=== PATIENT | female | born 1985 | race Caucasian/White ===

== ENCOUNTER → 2018-04-23 14:39 | Outpatient (CLI) | payer OTHER, MEDICAID, SELFPAY ==
[2018-04-23 16:00] LABS: Free T4, Direct Thyroxine 1.49 ng/dL (0.78-2.19)
[2018-04-23 16:14] LABS: Thyroid Stimulating Hormone 0.03 uIU/mL (0.47-4.68)
[2018-04-23 16:26] LABS: Vitamin D 25 Hydroxy (D3) 36.2 ng/mL (30.0-100.0)
[2018-04-23 16:43] LABS: Rubella Antibody IgG 8.1 IU/mL (>15)
[2018-04-25 13:57] LABS: Hepatitis B Surf Ab Qualitativ Reactive (Nonreactive)
[2018-04-25 14:41] LABS: Mumps Virus IgG Antibody < 9.00 AU/mL (< 9.00)
== END ==
PROVIDERS: PCP Family Medicine; Visit Provider Family Medicine
DX: E55.9 Vitamin D deficiency, unspecified (principal); E03.9 Hypothyroidism, unspecified; Z78.9 Other specified health status
CPT/HCPCS: 36415; 82306; 84439; 84443; 86706; 86735; 86762; 86765; 86787

== ENCOUNTER → 2018-09-15 16:16 | Outpatient (CLI) | payer OTHER, MEDICAID, SELFPAY ==
[2018-09-15 18:14] LABS: TSH w/ Reflex to FT4 0.26 uIU/mL (0.47-4.68)
[2018-09-15 18:59] LABS: HCG Quantitative /Beta subunit < 2.39 mIU/mL; Prolactin 11.8 ng/mL (3.0-18.6)
== END ==
PROVIDERS: Family Provider Family Medicine; PCP Family Medicine; Visit Provider Family Medicine
DX: E03.9 Hypothyroidism, unspecified (principal); N91.2 Amenorrhea, unspecified
CPT/HCPCS: 36415; 84146; 84439; 84443; 84702

== ENCOUNTER → 2018-11-07 14:10 | Outpatient (CLI) | payer OTHER, MEDICAID, SELFPAY ==
[2018-11-07 15:16] LABS: HCG Quantitative /Beta subunit < 2.39 mIU/mL
== END ==
PROVIDERS: Family Provider Family Medicine; PCP Family Medicine; Visit Provider Registered Nurse
DX: N93.9 Abnormal uterine and vaginal bleeding, unspecified (principal)
CPT/HCPCS: 36415; 84702

== ENCOUNTER → 2018-11-14 10:12 | Outpatient (CLI) | payer OTHER, MEDICAID, SELFPAY ==
--- NOTE | 2018-11-14 10:13 | DI.US.S_ITS ---
PROCEDURE: US PELVIC COMPLETE INDICATIONS: Heavy uterine bleeding TECHNIQUE: Real-time scanning was performed of the pelvic organs, with image documentation. Additional endovaginal scanning was necessary due to incomplete visualization of the adnexal and endometrial structures by transabdominal scanning. COMPARISON: [facility], , PELVIC COMPLETE, 01/01/2013, 10:17. FINDINGS: Transabdominal scanning: Limited scanning through the kidneys shows no hydronephrosis. No pathologic free abdominal or pelvic fluid. Endovaginal scanning: A mild amount of free pelvic fluid is seen, which is considered to be within physiologic limits. Limited scanning through the kidneys shows no hydronephrosis. Uterus: Uterus is normal in size at 6 x 2.9 x 4.1 cm. The endometrium measures 4 mm in combined thickness. Ovaries: The right ovary measures 1.7 x 1.4 x 2.8 cm. The left ovary measures 2 x 1.4 x 1.7 cm. The ovaries have a normal sonographic appearance with small follicles seen on both sides. No adnexal masses are seen. IMPRESSION: Pelvic ultrasound within normal limits. Dictated by: Noah Martinez M.D. on 11/14/2018 at 10:19 Approved by: Noah Martinez M.D. on 11/14/2018 at 10:21
== END ==
PROVIDERS: Family Provider Family Medicine; PCP Family Medicine; Visit Provider Registered Nurse
DX: N93.9 Abnormal uterine and vaginal bleeding, unspecified (principal)
CPT/HCPCS: 76830; 76856

== ENCOUNTER → 2019-01-23 16:38 | Outpatient (CLI) | payer OTHER, MEDICAID, SELFPAY ==
[2019-01-23 17:57] LABS: Free T3, Triiodothyronine Free 2.76 pg/mL (2.77-5.27); Free T4, Direct Thyroxine 1.25 ng/dL (0.78-2.19)
== END ==
PROVIDERS: PCP Family Medicine; Visit Provider Family Medicine
DX: E03.9 Hypothyroidism, unspecified (principal)
CPT/HCPCS: 36415; 84439; 84443; 84481

== ENCOUNTER → 2019-03-04 16:03 | Outpatient (CLI) | payer OTHER, MEDICAID, SELFPAY | PROVIDERS: PCP Family Medicine; Visit Provider Physician Assistant | DX: R30.0 Dysuria (principal) | CPT/HCPCS: 87077; 87086; 87186 ==

== ENCOUNTER → 2020-01-06 17:28 | Outpatient (CLI) | payer OTHER, MEDICAID, SELFPAY ==
[2020-01-06 19:09] LABS: Hemoglobin A1C% w Est Avg Glu 5.3 % (4.0-6.0)
[2020-01-06 19:32] LABS: Alanine Aminotransferase 49 IU/L (<35); Albumin 4.1 g/dL (3.5-5.0); Albumin Globulin Ratio 1.1 (1.0-2.8); Alkaline Phosphatase 116 U/L (38-126); Aspartate Aminotransferase 35 IU/L (14-36); BUN Creatinine Ratio 13.3 (6-22); Bilirubin Total 0.3 mg/dL (0.2-1.3); Blood Urea Nitrogen 11 mg/dL (7-17); Calcium 9.5 mg/dL (8.4-10.2); Carbon Dioxide 21 mmol/L (22-32); Chloride 109 mmol/L (98-107); Estimated Glomerular Filt Rate > 60.0 mL/min (>60); Globulin 3.7 g/dL (1.7-4.1); Glucose 101 mg/dL (70-100); HEMOLYSIS < 15 (0-50); Potassium 4.2 mmol/L (3.4-5.1); Sodium 140 mmol/L (137-145); Total Protein 7.8 g/dL (6.3-8.2)
[2020-01-06 19:46] LABS: Free T3, Triiodothyronine Free 1.92 pg/mL (2.77-5.27); Free T4, Direct Thyroxine 0.82 ng/dL (0.78-2.19)
[2020-01-06 19:47] LABS: Vitamin D 25 Hydroxy (D3) 21.6 ng/mL (30.0-100.0)
[2020-01-06 20:00] LABS: Thyroid Stimulating Hormone 3.65 uIU/mL (0.47-4.68)
[2020-01-12 04:36] LABS: Triiodothyronine T3 Reverse 21.4 ng/dL (9.2-24.1)
== END ==
PROVIDERS: PCP Family Medicine; Referring Provider Family Medicine; Visit Provider Family Medicine
DX: E03.9 Hypothyroidism, unspecified (principal); E55.9 Vitamin D deficiency, unspecified; E66.9 Obesity, unspecified; F32.9 Major depressive disorder, single episode, unspecified; M85.80 Other specified disorders of bone density and structure, unspecified site
CPT/HCPCS: 36415; 80053; 82306; 83036; 84439; 84443; 84481; 84482

== ENCOUNTER → 2020-04-01 11:29 | Outpatient (CLI) | payer OTHER, SELFPAY | PROVIDERS: PCP Family Medicine; Visit Provider Family Medicine | DX: N39.0 Urinary tract infection, site not specified (principal) | CPT/HCPCS: 87077; 87086; 87186 ==

== ENCOUNTER → 2020-09-21 16:30 | Outpatient (CLI) | payer OTHER, MEDICAID, SELFPAY ==
[2020-09-21 17:45] LABS: Progesterone, Total 0.44 ng/mL
== END ==
PROVIDERS: PCP Family Medicine; Referring Provider Family Medicine; Visit Provider Family Medicine
DX: E28.2 Polycystic ovarian syndrome (principal)
CPT/HCPCS: 36415; 84144

== ENCOUNTER → 2020-10-03 15:16 | Outpatient (CLI) | payer OTHER, MEDICAID, SELFPAY ==
[2020-10-03 16:17] LABS: Free T4, Direct Thyroxine 1.47 ng/dL (0.78-2.19)
[2020-10-03 16:20] LABS: Follicle Stimulating Hormone 3.61 mIU/mL
[2020-10-03 16:31] LABS: Thyroid Stimulating Hormone 0.086 uIU/mL (0.47-4.68)
== END ==
PROVIDERS: PCP Family Medicine; Referring Provider Obstetrics & Gynecology; Visit Provider Obstetrics & Gynecology
DX: E03.9 Hypothyroidism, unspecified (principal); E28.2 Polycystic ovarian syndrome
CPT/HCPCS: 36415; 83001; 83002; 84439; 84443; 84481

== ENCOUNTER → 2021-01-28 11:20 | Outpatient (CLI) | payer OTHER, SELFPAY ==
[2021-01-28 11:44] LABS: Initial Volume 4 mL; Semen 30 min. Liquification? Yes
== END ==
PROVIDERS: PCP Family Medicine; Referring Provider Obstetrics & Gynecology; Visit Provider Obstetrics & Gynecology
DX: N97.0 Female infertility associated with anovulation (principal)
CPT/HCPCS: 58323

== ENCOUNTER → 2021-02-25 07:10 | Outpatient (CLI) | payer OTHER, SELFPAY ==
[2021-02-25 08:10] LABS: Final Volume 0.5 mL; Semen 30 min. Liquification? Yes
== END ==
PROVIDERS: PCP Family Medicine; Referring Provider Obstetrics & Gynecology; Visit Provider Obstetrics & Gynecology
DX: E28.2 Polycystic ovarian syndrome (principal); N97.0 Female infertility associated with anovulation
CPT/HCPCS: 58323

== ENCOUNTER → 2021-03-25 10:40 | Outpatient (CLI) | payer OTHER, SELFPAY ==
[2021-03-25 11:05] LABS: Final Volume 1 mL; Initial Volume 4 mL; Semen 30 min. Liquification? Yes
== END ==
PROVIDERS: PCP Family Medicine; Referring Provider Specialist; Visit Provider Specialist
DX: N97.0 Female infertility associated with anovulation (principal)
CPT/HCPCS: 58323

== ENCOUNTER → 2021-04-25 12:15 | Outpatient (CLI) | payer OTHER, SELFPAY ==
[2021-04-25 14:00] LABS: Initial Volume 3.5 mL; Semen 30 min. Liquification? Yes
== END ==
PROVIDERS: PCP Family Medicine; Referring Provider Obstetrics & Gynecology; Visit Provider Obstetrics & Gynecology
DX: N97.0 Female infertility associated with anovulation (principal)
CPT/HCPCS: 58323

== ENCOUNTER → 2021-05-04 10:21 | Outpatient (CLI) | payer OTHER, SELFPAY ==
[2021-05-04 11:12] LABS: Hemoglobin A1C% w Est Avg Glu 5.4 % (4.0-6.0)
[2021-05-04 11:25] LABS: Alanine Aminotransferase 32 IU/L (<35); Albumin 4.3 g/dL (3.5-5.0); Albumin Globulin Ratio 1.1 (1.0-2.8); Alkaline Phosphatase 105 U/L (38-126); Aspartate Aminotransferase 32 IU/L (14-36); BUN Creatinine Ratio 13.2 (6-22); Bilirubin Total 0.5 mg/dL (0.2-1.3); Blood Urea Nitrogen 9 mg/dL (7-17); Calcium 9.4 mg/dL (8.4-10.2); Carbon Dioxide 22 mmol/L (22-32); Chloride 106 mmol/L (98-107); Cholesterol 203 mg/dL (140-199); Estimated Glomerular Filt Rate > 60.0 mL/min (>60); Globulin 3.8 g/dL (1.7-4.1); Glucose 96 mg/dL (70-100); HDL Cholesterol 51 mg/dL (40-60); HEMOLYSIS < 15 (0-50); LDL Cholesterol Calculated 135 mg/dL (<100); Potassium 4.1 mmol/L (3.4-5.1); Sodium 137 mmol/L (137-145); Total Protein 8.1 g/dL (6.3-8.2); Triglycerides 84 mg/dL (35-150)
[2021-05-04 12:03] LABS: Free T3, Triiodothyronine Free 2.88 pg/mL (2.77-5.27); Free T4, Direct Thyroxine 1.36 ng/dL (0.78-2.19)
== END ==
PROVIDERS: PCP Family Medicine; Referring Provider Family Medicine; Visit Provider Family Medicine
DX: E03.9 Hypothyroidism, unspecified (principal); E28.2 Polycystic ovarian syndrome; E66.9 Obesity, unspecified; R79.89 Other specified abnormal findings of blood chemistry
CPT/HCPCS: 36415; 80053; 80061; 83036; 84439; 84443; 84481

== ENCOUNTER → 2021-07-04 18:06 | Outpatient (CLI) | payer OTHER, MEDICAID, SELFPAY ==
--- NOTE | 2021-07-04 18:08 | DI.RAD.S_ITS ---
PROCEDURE: XR KNEE LT 3V INDICATIONS: fall TECHNIQUE: 3 views of the knee were acquired. COMPARISON: None. FINDINGS: Bones: No fractures or dislocations. No suspicious bony lesions. Soft tissues: Small joint effusion. No suspicious soft tissue calcifications. IMPRESSION: No acute osseous abnormality. Small joint effusion suspected. Dictated by: Kun Candelario M.D. on 07/04/2021 at 18:26 Approved by: Kun Candelario M.D. on 07/04/2021 at 18:31
== END ==
PROVIDERS: PCP Family Medicine; Referring Provider Physician Assistant; Visit Provider Physician Assistant
DX: M25.562 Pain in left knee (principal); M25.462 Effusion, left knee
CPT/HCPCS: 73562

== ENCOUNTER → 2023-04-22 16:12 | Outpatient (CLI) | payer OTHER, SELFPAY ==
[2023-04-22 17:58] LABS: HCG Quantitative /Beta subunit < 2.4 mIU/mL
== END ==
PROVIDERS: PCP Family Medicine; Referring Provider Obstetrics & Gynecology; Visit Provider Obstetrics & Gynecology
DX: N91.2 Amenorrhea, unspecified (principal)
CPT/HCPCS: 36415; 84702

== ENCOUNTER → 2023-06-06 | Outpatient (CLI) | payer OTHER, SELFPAY ==
--- NOTE | 2023-06-06 08:16 | DI.RAD.S_ITS ---
PROCEDURE: HL HYSTEROSAPINGOGRAPHY INDICATIONS: Check tubes COMPARISON: None. FINDINGS: Patient had a documented negative test prior to the study. Following speculum insertion, a balloon-tip catheter was inserted into the cervical canal, and secured by inflating the balloon. Contrast was then injected into the endometrial canal. Uterus: The uterine cavity appears normal in size and morphology, without synechiae or masses. Fallopian tubes: Both fallopian tubes fill with contrast, and appear normal in caliber and morphology. There is ready dispersion of contrast into the peritoneal cavity. IMPRESSION: Patent bilateral fallopian tubes. Dictated by: Veornica Chan M.D. on 06/12/2023 at 13:00 Approved by: Veronica Chan M.D. on 06/12/2023 at 13:01
--- NOTE | 2023-06-06 17:03 | P.PCN_ITS ---
Procedures Date/Time Date of procedure: 06/06/23 Time of procedure: 09:05 General Procedure description: Hysterosalpingogram After informed consent was obtained, the patient was placed on the fluoroscopy table on an overturned bedpan. A bivalve speculum was placed into the vagina. The cervix was cleaned x3 with Betadine. The anterior lip of the cervix was grasped with a single-tooth tenaculum. The dilator was used to dilate the cer vix to 5 mm. The hysterosalpingogram catheter passed easily into the endometrial cavity and the balloon was inflated with 3 cc of air. The bivalve speculum was removed from the vagina. 12 cc of Isovue-300 were injected into the uterus under direct fluoroscopic examination. The contours of the uterus were normal. There was bilateral spill from the tubes. The Isovue-300 was aspirated from the uterus. The single-tooth tenaculum was removed from the anterior lip of the cervix. Sponge, and instrument counts were correct x2. The patient tolerated the procedure well. Complications: none
== END ==
LOC: RAD 08:15
PROVIDERS: PCP Family Medicine; Referring Provider Obstetrics & Gynecology; Visit Provider Obstetrics & Gynecology
DX: Z31.69 Encounter for other general counseling and advice on procreation (principal)
CPT/HCPCS: 58340; 74740

== ENCOUNTER 2025-09-03 17:31 | Emergency (ER) | payer BC, SELFPAY ==
[2025-09-03] VITALS (12 sets, daily range): BP systolic 133–150; BP diastolic 79–95; PULSE 75–102; RESP 18; TEMP 36.8; O2SAT 97–100; BMI 32.3
--- NOTE | 2025-09-03 17:42 | DI.CT.S_ITS ---
PROCEDURE: CT ABDOMEN PELVIS W CON
--- NOTE | 2025-09-03 17:45 | ED_ITS ---
HPI - Abdominal Pain
--- NOTE | 2025-09-03 17:45 | ED.ABDPAIN ---
HPI - Abdominal Pain General Chief Complaint: Abdominal Pain Stated Complaint: severe abd pn, vomiting since last night, Time Seen by Provider: 09/03/25 17:41 Source: patient Mode of arrival: Wheelchair History of Present Illness HPI narrative: Patient is a 40-year-old female presenting today with 24 hours of abdominal pain. She has been unable to keep anything and she is having some nausea vomiting. No change in bowel habits. She does have a history of migraines she can not take opiates they cause severe vomiting despite anti nausea medication. She denies any chest pain or shortness breath. She reports that even putting on a seatbelt hurts her. Related Data Previous Rx's ?Medication ?Instructions ?Recorded Cane: Single Point u ##1 08/05/17 VITAMIN D (Vitamin D2) 50,000 units PO QWEEK #4 caps 03/05/18 inhalational spacing device (Augusto #1 ea 06/20/18 Aerosol [place] Enhancer spacer) albuterol sulfate 90 mcg/actuation 2 puff inhalation Q4HP PRN 01/06/20 aerosol inhaler (Ventolin HFA) shortness of breath or wheezing #1 ea lorazepam 1 mg tablet 1 mg PO Q6HP PRN anxiety #15 tabs 01/06/20 metformin 500 mg tablet See Rx Instructions .Route 04/10/21 .COMPLEX #180 tabs levothyroxine 137 mcg tablet 137 mcg PO DAILY #90 tabs 10/16/21 sertraline 100 mg tablet 200 mg (2 x 100 mg) PO DAILY #180 10/16/21 tabs letrozole 2.5 mg tablet See Rx Instructions .Route 11/27/21 .COMPLEX #5 tabs Allergies Allergy/AdvReac Type Severity Reaction Status Date / Time venom-honey bee (bee venom Allergy Intermediate SWELLING Verified 09/03/25 17:36 (honey bee)) zolpidem (From AMBIEN) AdvReac Severe sleep Verified 09/03/25 17:36 behaviors-tried to jump from 2nd story window Opioids - Morphine Analogues AdvReac Intermediate All Verified 09/03/25 17:36 opioids - Nausea/Vomiting hydrocodone AdvReac Mild VOMITING Verified 09/03/25 17:36 Patient History Medical History Otitis media Impacted cerumen of right ear 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) Left hip pain Kidney stones Hypothyroidism (2012) Chicken pox Chronic back pain (2011) Depression (1993) Asthma (1999) Normal Papanicolaou smear DUB (dysfunctional uterine bleeding) Surgical History Anesthesia Status post arthroscopy (2002) Family History Father Age: 68 Hypertension High cholesterol Mother Age: 64 History of recurrent miscarriages, not currently H/O bicuspid aortic valve History of aortic valve replacement Obesity Heart disease Hypertension High cholesterol Grandmother Diabetes mellitus Sister Age: 40 PCOS (polycystic ovarian syndrome) Morbid obesity, unspecified obesity type Sister Age: 45 Cervical cancer Brother No problems noted. Brother No problems noted. Grandfather No problems noted. Grandmother Ovarian cancer Social History Smoking Status: Never smoker alcohol intake: never substance use type: does not use Smoking Status: Never smoker Exam Initial Vital Signs Initial Vital Signs: Vital Signs Temperature 98.2 F 09/03/25 17:36 Pulse Rate 86 09/03/25 17:36 Respiratory Rate 18 09/03/25 17:36 Blood Pressure 133/88 09/03/25 17:36 Pulse Oximetry 99 09/03/25 17:36 Oxygen Delivery Method Room Air 09/03/25 17:36 GENERAL: Alert 40-year-old female appears uncomfortable HEENT: Head atraumatic,EOMI, pupils reactive, face symmetric, moist mucous membranes CARDIOVASCULAR: Regular rate and rhythm without murmurs, rubs or gallops. RESPIRATORY: Breath sounds equal bilaterally, no wheezes rales or rhonchi. ABDOMEN: Diffusely tender all throughout more on lower abdomen rather than upper EXTREMITIES: Normal range of motion, no clubbing or edema. Neurovascularly intact NEUROLOGICAL: Alert and oriented x4.Normal gait and speech. Cranial nerves II through XII grossly intact. SKIN: Warm, dry, no laceration, no petechiae, no rashes or lesions. Course Orders Ordered: ED Orders 09/03/25 17:42 CT abdomen pelvis w con Stat EKG-12 Lead Stat 09/03/25 18:02 Complete Blood Count AUTO DIFF Stat Comprehensive Metabolic Panel Stat Lactate (Lactic Acid) Stat Lipase Stat Test Serum,Qual Stat 09/03/25 19:25 Blood Culture Stat Sodium Chloride (Normal Saline 0.9%) 1,000 mls @ 100 mls/hr IV CONT MIAH Last Admin: 09/03/25 22:39 Dose: 100 mls/hr Documented By: RAMIREZ Discontinued Medications Sodium Chloride (Normal Saline 0.9%) 1,000 mls @ 1,000 mls/hr IV BOLUS ONE Stop: 09/03/25 18:41 Last Infusion: 09/03/25 19:33 Dose: Infused Documented By: Admin: 09/03/25 18:28 Dose: 1,000 mls/hr Documented By: RAMIREZ Ceftriaxone Sodium 1,000 mg/ (Sodium Chloride) 100 mls @ 200 mls/hr IV NOW ONE Stop: 09/03/25 18:47 Last Infusion: 09/03/25 20:11 Dose: Infused Documented By: Admin: 09/03/25 19:28 Dose: 200 mls/hr Documented By: BK Sodium Chloride (Normal Saline 0.9%) 1,000 mls @ 1,000 mls/hr IV BOLUS ONE Stop: 09/03/25 19:45 Last Infusion: 09/03/25 20:57 Dose: Infused Documented By: Admin: 09/03/25 19:32 Dose: 1,000 mls/hr Documented By: BK Metronidazole (Flagyl) 500 mg in 100 mls @ 100 mls/hr IV NOW ONE Stop: 09/03/25 20:47 Last Infusion: 09/03/25 21:06 Dose: Infused Documented By: Admin: 09/03/25 20:00 Dose: 100 mls/hr Documented By: BK Sodium Chloride (Normal Saline 0.9%) 2,408.58 mls @ 802.86 mls/hr 30 ml/kg infuse over 3 hr (2408.58 ml) IV NOW ONE Stop: 09/03/25 22:59 Last Infusion: 09/03/25 22:38 Dose: Infused Documented By: Admin: 09/03/25 20:59 Dose: 802.86 mls/hr Documented By: BK Piperacillin Sod/Tazobactam (Sod 4.5 gm/ Sodium Chloride) 100 mls @ 200 mls/hr IV NOW ONE Stop: 09/03/25 22:06 Last Admin: 09/03/25 22:26 Dose: 200 mls/hr Documented By: RAMIREZ Ketorolac Tromethamine (Ketorolac 30 Mg/Ml Vial) 15 mg IV NOW ONE Stop: 09/03/25 17:44 Last Admin: 09/03/25 18:28 Dose: 15 mg Documented By: RAMIREZ Ondansetron HCl (Ondansetron 4 Mg/2 Ml Inj) 4 mg IV NOW ONE Stop: 09/03/25 17:43 Last Admin: 09/03/25 18:28 Dose: 4 mg Documented By: RAMIREZ Vital Signs Vital signs: Vital Signs - 8 hr 09/03/25 17:36 09/03/25 19:37 09/03/25 20:00 Temperature 98.2 F Pulse Rate 86 82 88 Respiratory Rate 18 Blood Pressure 133/88 Pulse Oximetry 99 99 100 Oxygen Delivery Method Room Air 09/03/25 20:30 09/03/25 21:51 Temperature Pulse Rate 97 H 75 Respiratory Rate 18 Blood Pressure Pulse Oximetry 98 100 Oxygen Delivery Method MDM - Abdominal Pain Lab Data 09/03/25 18:02 09/03/25 18:02 Labs: Lab Results 09/03/25 09/03/25 Range/Units 18:02 20:16 WBC 17.6 H (4.5-11.0) X10^3/uL RBC 5.78 H (4.0-5.2) X10^6/uL Hgb 14.4 (12.0-16.0) g/dL Hct 43.6 (36-46) % MCV 75.4 L (80-100) fL MCH 24.9 L (26-34) PG MCHC 33.0 (30-36) % RDW 14.9 H (11.6-14.8) % Plt Count 400 (150-400) X10^3/uL Neut % (Auto) 86.1 H (50-75) % Lymph % (Auto) 7.9 L (25-40) % [place] % (Auto) 5.7 (3-14) % Eos % (Auto) 0.0 L (2-4) % Baso % (Auto) 0.3 (0-2) % Neut # (Auto) 27753 H (7476-5855) /uL Lymph # (Auto) 1400 (9637-8405) /uL [place] # (Auto) 1000 H (0-900) /uL Eos # (Auto) 0 (0-450) /uL Baso # (Auto) 100 (0-100) /uL Sodium 138 (137-145) mmol/L Potassium 4.1 (3.4-5.1) mmol/L Chloride 101 (98-107) mmol/L Carbon Dioxide 20 L (22-32) mmol/L BUN 10 (7-17) mg/dL Creatinine 0.76 (0.52-1.04) mg/dL Estimated GFR > 60 (>60) mL/min BUN/Creatinine Ratio 13.2 (6-22) Glucose 109 H (70-99) mg/dL Lactate 3.0 H 1.2 (0.7-2.1) mmol/L Calcium 9.9 (8.4-10.2) mg/dL Total Bilirubin 0.9 (0.2-1.3) mg/dL AST 79 H (14-36) IU/L ALT 142 H (<35) IU/L Alkaline Phosphatase 129 H (38-126) U/L Total Protein 10.1 H (6.3-8.2) g/dL Albumin 5.3 H (3.5-5.0) g/dL Globulin 4.8 H (1.7-4.1) g/dL Albumin/Globulin Ratio 1.1 (1.0-2.8) Lipase 46 (23-300) U/L Serum , Qual Negative (Negative) Point of care testing: Urine Dip Bedside Urine Glucose Negative Bedside Urine Bilirubin - Negative Bedside Urine Ketone + 15 Urine Specific [place] 1.010 Bedside Urine Occult Blood - Negative Bedside Urine pH 7.0 Bedside Urine Protein - Negative Bedside Urine Urobilinogen - Negative Bedside Urine Nitrite - Negative Bedside Urine Leukocytes - Negative Esterase Imaging Data CT scan - abdomen/pelvis: Radiologist's Impression: PROCEDURE: CT ABDOMEN PELVIS W CON INDICATIONS: sever upper ab pain TECHNIQUE: After the administration of intravenous contrast, axial sections acquired from the lung bases to the pubic symphysis. Coronal and sagittal reformats were performed. For radiation dose reduction, the following was used: automated exposure control, adjustment of mA and/or kV according to patient size. COMPARISON: None. FINDINGS: Image quality: Diagnostic. Lower Chest: No significant findings. ABDOMEN: Liver: No solid mass. Gallbladder: Markedly distended and markedly inflamed gallbladder with marked wall edema. Large gallstones. There is fluid subjacent to the gallbladder. Consider possible gallbladder perforation. Biliary ducts: There are numerous small calcifications present in the distal duodenum and proximal jejunum, potentially biliary stones that have passed into the proximal small bowel, not definite. Pancreas: No ductal dilation. Spleen: Size is within normal limits. Adrenal Glands: No adrenal nodules. Kidneys and Ureters: No hydronephrosis. No solid mass. No complex renal cystic lesion which requires follow up. Stomach and Bowel: Normal colonic caliber, without significant wall thickening. Peritoneum: No abnormal intraperitoneal fluid. No free air. Ventral Wall: No significant ventral hernia. Abdominal Nodes: No retroperitoneal or mesenteric adenopathy by size criteria. Vessels: Aorta and inferior vena cava are normal in size. PELVIS: Pelvic Organs: Unremarkable. Bladder: No bladder wall thickening, accounting for underdistention. Pelvic Nodes: No enlarged lymph nodes. Miscellaneous: No inguinal hernias are seen. Bones: No aggressive osseous abnormality. Bilateral L4 pars defects, mild anterolisthesis of L4 on L5. There is mild posterior disc protrusion at this level. There is no canal stenosis or significant foraminal stenosis. IMPRESSION: Remarkably severe acute cholecystitis. Question perforation. Question passage of multiple stones into the bowel. Comment: Findings were discussed with Dr. Ragsdale on 09/03/2025 at 1918 hours Incidental findings include bilateral L4 pars defects with mild anterolisthesis. Dictated by: Rafy Fung M.D. on 09/03/2025 at 19:16 MDM Narrative Medical decision making narrative: MDM CC: Abdominal pain Complicating co-morbidities: Asthma hypothyroid Data collected from: Patient Medical records reviewed: Minimal records, patient reports that she is not on metformin she does have PCOS she was taking it but not taking it anymore Differential considered: Perforation, ischemia, cholecystitis cholelithiasis Exam documented above, pertinent findings include: Patient has pretty tender abdomen all over, peritoneal signs, tender in lower abdomen as well as upper abdomen appears quite uncomfortable breath sounds are clear Lab Test results independently reviewed as above. Pertinent findings: CBC shows leukocytosis of 17 left shift noted no anemia Electrolytes do not show any significant abnormality creatinine 0.7 Lactate 3.0-->1.2 Bilirubin 0.9 AST 79 ALT 42 alk-phos 129 Imaging studies independently reviewed: CT concerning for acute cholecystitis possible perforation possible passage of multiple stones into the bowel. I did discuss findings with radiologist Consultations: 1944 Dr. 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 2038 Dr. Porter, surgery at [facility] updated on patient's symptoms test results concern for acute abdomen 2199 Dr. Henning in ED to see and evaluate patient agrees that patient is stable for transfer and needs to be transferred for higher level of care. Surgeons spoke to each other and agree on transfer Treatments: Sepsis fluids, Rocephin, Flagyl, Zosyn, Toradol Re-evaluations: Patient's abdomen is reexamined much softer able to touch and pain she overall appears better vitals remain stable she has never hypotensive or tachycardic in the emergency department Discussion: Patient 40-year-old female presenting today with sudden onset of abdominal pain nausea and vomiting. Abdomen is very tender concern for peritoneal signs initially upon arrival. However after Toradol and fluids she is feeling better. She initially had an elevated lactate of 3.0 which improved to 1.2. Vitals are stable. Surgery concern for perforated gallbladder and possible gallbladder fistula. Surgeon spoke to each other and patient is accepted in being transferred to [facility] Critical Care Time Critical Care Time Critical Care Time: Yes Total Critical Care Time: 32 Attestation: The high probability of a clinically significant, sudden or life threatening deterioration of the abdominal system(s) required my full and direct attention, intervention and personal management. The aggregate critical care time was 32 minutes. This time is in addition to time spent performing reported procedures but includes the following: [x] Data Review and interpretation [x] Patient assessment and monitoring of vital signs [x] Documentation [x] Medication orders and management Discharge Plan Departure Patient Disposition: [facility] Clinical Impression: Perforated gallbladder Prescriptions: No Action Cane: Single Point Qty: 1 0RF VITAMIN D (Vitamin D2) 50,000 units PO QWEEK Qty: 4 1RF Rx Instructions: Please have your vitamin D level checked in 8 weeks metformin 500 mg tablet See Rx Instructions .ROUTE .COMPLEX Qty: 180 1RF Dose Instruction: TAKE 1 TABLET BY MOUTH TWICE DAILY Rx Instructions: TAKE 1 TABLET BY MOUTH TWICE DAILY levothyroxine 137 mcg tablet 137 mcg PO DAILY Qty: 90 0RF sertraline 100 mg tablet 200 mg PO DAILY Qty: 180 3RF letrozole 2.5 mg tablet See Rx Instructions .ROUTE .COMPLEX Qty: 5 1RF Dose Instruction: TAKE 1 TABLET BY MOUTH DAILY ON DAY 3-7 OF CYCLE Rx Instructions: TAKE 1 TABLET BY MOUTH DAILY ON DAY 3-7 OF CYCLE albuterol sulfate [Ventolin HFA] 90 mcg/actuation HFA aerosol inhaler 2 puff INHALATION Q4HP PRN (Reason: shortness of breath or wheezing) Qty: 1 5RF lorazepam 1 mg tablet 1 mg PO Q6HP PRN (Reason: anxiety) Qty: 15 0RF (DME) inhalational spacing device [Augusto Aerosol [place] Enhancer] spacer See Dose Instructions .ROUTE .MEDSUPPLY Qty: 1 0RF Dose Instruction: As directed Rx Instructions: As directed
--- NOTE | 2025-09-03 18:12 | EKG_ITS ---
[facility]
[2025-09-03 18:16] LABS: Add Manual Diff / Slide Review NO; Hematocrit 43.6 % (36-46); Hemoglobin 14.4 g/dL (12.0-16.0); Lymphocytes Absolute Auto 1400 /uL (1100-4500); Mean Corpuscular HGB Conc 33.0 % (30-36); Mean Corpuscular Hemoglobin 24.9 PG (26-34); Mean Corpuscular Volume 75.4 fL (80-100); Platelet Count 400 X10^3/uL (150-400)
[2025-09-03] MEDS: KETOROLAC 30 MG/ML VIAL 15 MG IV (18:28)
[2025-09-03] MEDS: ONDANSETRON 4 MG/2 ML INJ IV (18:28)
[2025-09-03] MEDS: SODIUM CHLORIDE 0.9% 1,000 ML 1000 ML IV ×2 (18:28→19:32)
[2025-09-03 18:36] LABS: Alanine Aminotransferase 142 IU/L (<35); Albumin 5.3 g/dL (3.5-5.0); Albumin Globulin Ratio 1.1 (1.0-2.8); Alkaline Phosphatase 129 U/L (38-126); Blood Urea Nitrogen 10 mg/dL (7-17); Calcium 9.9 mg/dL (8.4-10.2); Carbon Dioxide 20 mmol/L (22-32); Chloride 101 mmol/L (98-107); Estimated Glomerular Filt Rate > 60 mL/min (>60); Globulin 4.8 g/dL (1.7-4.1); Glucose 109 mg/dL (70-99); HEMOLYSIS < 15 (0-50); Lipase 46 U/L (23-300); Potassium 4.1 mmol/L (3.4-5.1); Sodium 138 mmol/L (137-145); Total Protein 10.1 g/dL (6.3-8.2)
[2025-09-03 18:38] LABS: Lactate (Lactic Acid) 3.0 mmol/L (0.7-2.1)
[2025-09-03 18:41] LABS: Pregnancy Test Serum,Qual Negative (Negative)
[2025-09-03] MEDS: metroNIDAZOLE 500 MG/100 ML PIGGYBACK 100 MG IV (20:00)
[2025-09-03 20:07] LABS: Reflexed Lactate in 2 Hours Y
[2025-09-03 20:39] LABS: Lactate 2HR (Lactic Acid Rflx) 1.2 mmol/L (0.7-2.1)
[2025-09-03] MEDS: SODIUM CHLORIDE 0.9% 802.86 ML IV (20:59)
--- NOTE | 2025-09-03 22:11 | P.CONS_ITS ---
History of Present Illness
--- NOTE | 2025-09-03 22:11 | PM.CN.IH.1 ---
History of Present Illness Consult details Date Patient Seen: 09/03/25 Time Patient Seen: 22:11 Chief complaint: severe abd pn, vomiting since last night, Reason for consult: same Requesting provider: Myranda Ragsdale Narrative: Called to evaluate this 40-year-old female who presented to the emergency room this p.m. following a sudden onset of severe abdominal pain. The patient reports that up until this afternoon, she had no discomfort and was feeling normal. She reports that the pain came on suddenly and was very intense. She reports no nausea or vomiting. She states she has never had heartburn. She has remained afebrile at home. The patient is otherwise very healthy. She has had no prior surgery and reports no heart disease or diabetes. She has mild hypothyroidism and utilizes inhalers for seasonal asthma. She does not smoke nor does she consume ethanol. CT of the abdomen and pelvis reveals an very thick walled, distended gallbladder with fluid dependently collected beneath the gallbladder. It is immediately adjacent to the duodenum with evidence of fistulization. There are numerous gallstones within the proximal small bowel. On presentation to the emergency room she was noted to have severe leukocytosis [place] [address] and a lactate of 3. She has responded well to IV fluids with diminution of a lactate to 1.2. Meds Home Medications and Allergies Home Medications ?Medication ?Instructions ?Recorded ?Confirmed ?Type Cane: Single Point u ##1 08/05/17 07/15/23 Rx VITAMIN D (Vitamin D2) 50,000 units PO QWEEK #4 caps 03/05/18 07/15/23 Rx inhalational spacing device (Augusto #1 ea 06/20/18 07/15/23 Rx Aerosol Burke Enhancer spacer) albuterol sulfate 90 mcg/actuation 2 puff inhalation Q4HP PRN 01/06/20 07/15/23 Rx aerosol inhaler (Ventolin HFA) shortness of breath or wheezing #1 ea lorazepam 1 mg tablet 1 mg PO Q6HP PRN anxiety #15 tabs 01/06/20 07/15/23 Rx metformin 500 mg tablet See Rx Instructions .Route 04/10/21 07/15/23 Rx .COMPLEX #180 tabs levothyroxine 137 mcg tablet 137 mcg PO DAILY #90 tabs 10/16/21 07/15/23 Rx sertraline 100 mg tablet 200 mg (2 x 100 mg) PO DAILY #180 10/16/21 07/15/23 Rx tabs letrozole 2.5 mg tablet See Rx Instructions .Route 11/27/21 07/15/23 Rx .COMPLEX #5 tabs Allergies Allergy/AdvReac Type Severity Reaction Status Date / Time venom-honey bee (bee venom Allergy Intermediate SWELLING Verified 09/03/25 17:36 (honey bee)) zolpidem (From AMBIEN) AdvReac Severe sleep Verified 09/03/25 17:36 behaviors-tried to jump from 2nd story window Opioids - Morphine Analogues AdvReac Intermediate All Verified 09/03/25 17:36 opioids - Nausea/Vomiting hydrocodone AdvReac Mild VOMITING Verified 09/03/25 17:36 Review of Systems Review of Systems ROS: Yes All systems reviewed with the patient and are negative except as otherwise documented Exam Vital Signs (past 8 hours): - 09/03/25 17:36 09/03/25 19:37 09/03/25 20:00 Temperature 98.2 F Pulse Rate 86 82 88 Respiratory Rate 18 Blood Pressure 133/88 Pulse Oximetry 99 99 100 Oxygen Delivery Method Room Air 09/03/25 20:30 09/03/25 21:51 Temperature Pulse Rate 97 H 75 Respiratory Rate 18 Blood Pressure Pulse Oximetry 98 100 Oxygen Delivery Method Oxygen Delivery Method Room Air Narrative Exam Narrative: Atraumatic, normocephalic Alert and oriented x4 Afebrile Vital signs stable Pupils equal, round, reactive to light and accommodation; no scleral icterus Trachea midline Regular rate and rhythm without murmur Respirations clear to auscultation bilaterally; no wheezes rales or rhonchi; chest wall excursions symmetrical bilaterally Abdomen with significant right upper quadrant tenderness and a strongly positive Peña's; mildly distended; bowel sounds x4 quadrants, however, somewhat diminished Rectal deferred Moves all extremities x4; no CCE Objective Imaging CT scan - abdomen: My impression: Agree with radiologist's impression; concern regarding 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 Coronal and sagittal reformats were performed. For radiation dose reduction, the following was used: automated exposure control, adjustment of mA and/or kV according to patient size. COMPARISON: None. FINDINGS: Image quality: Diagnostic. Lower Chest: No significant findings. ABDOMEN: Liver: No solid mass. Gallbladder: Markedly distended and markedly inflamed gallbladder with marked wall edema. Large gallstones. There is fluid subjacent to the gallbladder. Consider possible gallbladder perforation. Biliary ducts: There are numerous small calcifications present in the distal duodenum and proximal jejunum, potentially biliary stones that have passed into the proximal small bowel, not definite. Pancreas: No ductal dilation. Spleen: Size is within normal limits. Adrenal Glands: No adrenal nodules. Kidneys and Ureters: No hydronephrosis. No solid mass. No complex renal cystic lesion which requires follow up. Stomach and Bowel: Normal colonic caliber, without significant wall thickening. Peritoneum: No abnormal intraperitoneal fluid. No free air. Ventral Wall: No significant ventral hernia. Abdominal Nodes: No retroperitoneal or mesenteric adenopathy by size criteria. Vessels: Aorta and inferior vena cava are normal in size. PELVIS: Pelvic Organs: Unremarkable. Bladder: No bladder wall thickening, accounting for underdistention. Pelvic Nodes: No enlarged lymph nodes. Miscellaneous: No inguinal hernias are seen. Bones: No aggressive osseous abnormality. Bilateral L4 pars defects, mild anterolisthesis of L4 on L5. There is mild posterior disc protrusion at this level. There is no canal stenosis or significant foraminal stenosis. IMPRESSION: Remarkably severe acute cholecystitis. Question perforation. Question passage of multiple stones into the bowel. Comment: Findings were discussed with Dr. Ragsdale on 09/03/2025 at 1918 hours Incidental findings include bilateral L4 pars defects with mild anterolisthesis. Dictated by: Rafy Fung M.D. on 09/03/2025 at 19:16 Labs 09/03/25 18:02 09/03/25 18:02 Labs: Laboratory Results - last 24 hr 09/03/25 09/03/25 18:02 20:16 WBC 17.6 H RBC 5.78 H Hgb 14.4 Hct 43.6 MCV 75.4 L MCH 24.9 L MCHC 33.0 RDW 14.9 H Plt Count 400 Neut % (Auto) 86.1 H Lymph % (Auto) 7.9 L Carbon % (Auto) 5.7 Eos % (Auto) 0.0 L Baso % (Auto) 0.3 Neut # (Auto) 13817 H Lymph # (Auto) 1400 Carbon # (Auto) 1000 H Eos # (Auto) 0 Baso # (Auto) 100 Sodium 138 Potassium 4.1 Chloride 101 Carbon Dioxide 20 L BUN 10 Creatinine 0.76 Estimated GFR > 60 BUN/Creatinine Ratio 13.2 Glucose 109 H Lactate 3.0 H 1.2 Calcium 9.9 Total Bilirubin 0.9 AST 79 H ALT 142 H Alkaline Phosphatase 129 H Total Protein 10.1 H Albumin 5.3 H Globulin 4.8 H Albumin/Globulin Ratio 1.1 Lipase 46 Serum , Qual Negative FOR[facility]LY [facility], [facility] Medical History Otitis media Impacted cerumen of right ear 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) Left hip pain Kidney stones Hypothyroidism (2012) Chicken pox Chronic back pain (2011) Depression (1993) Asthma (1999) Normal Papanicolaou smear DUB (dysfunctional uterine bleeding) Surgical History Anesthesia Status post arthroscopy (2002) Family History Father Age: 68 Hypertension High cholesterol Mother Age: 64 History of recurrent miscarriages, not currently H/O bicuspid aortic valve History of aortic valve replacement Obesity Heart disease Hypertension High cholesterol Grandmother Diabetes mellitus Sister Age: 40 PCOS (polycystic ovarian syndrome) Morbid obesity, unspecified obesity type Sister Age: 45 Cervical cancer Brother No problems noted. Brother No problems noted. Grandfather No problems noted. 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 The patient will be transported to a tertiary care center with available services. She is stable for transfer. Time-Based Coding :: [TOTAL MINUTES] spent with patient and on the chart (including review of chart, obtaining history, exam, reviewing outside data, placing orders, documenting exam and treatment plan, and counseling patient) on [DATE]. PROFEE Charge Codes Inpatient or Observation consultation: [id number]
[2025-09-03] MEDS: PIPERACILLIN/TAZO 4.5 GM in SODIUM CHLORIDE 0.9% 100 ML IV (22:26)
[2025-09-03] MEDS: SODIUM CHLORIDE 0.9% 1,000 ML 100 ML IV (22:39)
[2025-09-04] VITALS: BP 121/66; PULSE 91; O2SAT 96
[2025-09-04 00:30] VITALS: BP 155/90; PULSE 86; RESP 16; O2SAT 96
[2025-09-04 01:00] VITALS: PULSE 90; O2SAT 96
[2025-09-04 01:01] VITALS: BP 122/74; PULSE 87; O2SAT 96
[2025-09-04] MEDS: KETOROLAC 30 MG/ML VIAL 15 MG IV (01:16)
[2025-09-04] MEDS: ONDANSETRON 4 MG/2 ML INJ IV (01:23)
[2025-09-04 01:30] VITALS: BP 128/82; PULSE 81; O2SAT 97
== END 2025-09-04 01:55 | disposition short-term general hospital (02) ==
PROVIDERS: Emergency Provider Emergency Medicine
DX: K82.2 Perforation of gallbladder (principal); R11.2 Nausea with vomiting, unspecified
CPT/HCPCS: 36415; 74177; 80053; 81003; 83605; 83690; 84703; 85025; 87040; 93005; 94640; 96361; 96365; 96367; 96375; 96376; 99284; 99291; J0696; J1885; J2405; J2543; J7030; J7050; Q9967